=== PATIENT | male | born 1950 | race American Indian/Alaskan Native ===

== ENCOUNTER 2019-03-01 08:29 | Emergency (ER) | payer MEDICARE, BC ==
[2019-03-01 08:29] VITALS: BP 151/52; PULSE 96
[~2019-03-01 08:29] MED LIST changes: -Dextrose 5%-0.45% NaCl 1,000 ML IV SCH; -Midazolam 1 MG/ML 2 ML SDV ONE; -fentaNYL 100 MCG/2 ML SDV ONE
--- NOTE | 2019-03-01 08:30 | EDM.PDOC ---
ED HPI GENERAL MEDICAL PROBLEM - General Chief Complaint: General Stated Complaint: UNKNOWN Time Seen by Provider: 03/01/19 08:29 Source of Information: Reports: Patient, Old Records, Provider (Dr. Mabry), RN , RN Notes Reviewed History Limitations: Reports: No Limitations - History of Present Illness INITIAL COMMENTS - FREE TEXT/NARRATIVE: Pt sent to ER from endoscopy by Dr. Mabry with report of recurring chest pain with exertion. Pt was in this morning for an outpt. endoscopy, but when he was asked the preoperative screening questions the procedure was cancelled because he reported a recent history of chest pain relieved by Nitroglycerin. He had a normal EKG, and no current chest pain, but was urgently ushered to the ER anyway. Pt denies any chest pain here in the ER. Also denies shortness of breath , palpitations, orthopnea, or increasing wt or edema. Pt reports he saw Dr. Cervantes about 2 years ago and had a coronary artery stent. He states he continued to have exertional chest pain after the stent, and routinely for the past 2 years but was reassured by his carbonizer tester that his heart was not the problem. Then about 2 weeks ago, when he began to have increasing chest pain with exertion to the point that he considered it "severe". About 2 weeks ago he decided to try a Nitroglycerin 0.4mg SL and found that it relieved his pain. He has used the NTG a "few times" since then. Pt states he can walk slowly 100 yards, then develops chest pain. If he walks at a moderate pace he can only walk 50 yards. Onset: Gradual Duration: Chronic, Constant, Getting Worse Location: Reports: Chest Quality: Reports: Ache, Pressure, Same as Previous Episode Severity: Severe Improves with: Reports: Rest Worsens with: Reports: Other (Exertion) Associated Symptoms: Reports: No Other Symptoms Treatments [employer]: Reports: Aspirin, Nitroglycerin, Other Medication(s) - Related Data Allergies Allergy/AdvReac Type Severity Reaction Status Date / Time No Known Allergies Allergy Verified 03/01/19 08:29 Home Meds: Home Meds Aspirin [Ecotrin] 325 mg PO DAILY 02/13/15 [History] Finasteride [Proscar] 5 mg PO DAILY 02/13/15 [History] Isosorbide Mononitrate [Imdur] 30 mg PO DAILY 02/13/15 [History] Lisinopril [Prinivil] 10 mg PO DAILY 02/13/15 [History] Metoprolol Succinate [Toprol XL] 50 mg PO DAILY 02/13/15 [History] Nitroglycerin [Nitrostat] 0.4 mg SL ASDIRECTED 02/13/15 [History] Tamsulosin [Flomax] 0.8 mg PO DAILY 02/13/15 [History] atorvaSTATin [Lipitor] 40 mg PO BEDTIME 02/13/15 [History] Ibuprofen 400 mg PO BID 04/24/16 [History] diphenhydrAMINE [Benadryl] 50 mg PO BEDTIME 04/24/16 [History] Calcium Citrate 300 mg PO DAILY 02/26/19 [History] Past Medical History HEENT History: Reports: Impaired Vision Other HEENT History: wears glasses Cardiovascular History: Reports: CAD, High Cholesterol, Hypertension, Stents Respiratory History: Reports: Sleep Apnea Gastrointestinal History: Reports: Colon Polyp, Other (See Below) Other Gastrointestinal History: family hx of colonoscopy Genitourinary History: Reports: BPH, Prostate Disorder, Other (See Below) Other Genitourinary History: BPH with obstruction/lower urinary tract symptoms. Epididymitis, right. hx of kidney stone Musculoskeletal History: Reports: Arthritis, Fracture Other Musculoskeletal History: distal radial fx in 2009. right hip pain Neurological History: Reports: None Psychiatric History: Reports: None Endocrine/Metabolic History: Reports: Obesity/BMI 30+ Hematologic History: Reports: Other (See Below) Other Hematologic History: some delay in clotting due to Ibuprofen Immunologic History: Reports: None Oncologic (Cancer) History: Reports: None Dermatologic History: Reports: Eczema Other Dermatologic History: left hand eczema - Infectious Disease History Infectious Disease History: Reports: Chicken Pox, Measles, Mumps - Past Surgical History HEENT Surgical History: Reports: None Cardiovascular Surgical History: Reports: Coronary Artery Stent, Other (See Below) Other Cardiovascular Surgeries/Procedures: cardiac catheterization in 2002. 1 stent placement 08/13/2002. Transthoracic echocardiogram 03/04/2002 GI Surgical History: Reports: Polypectomy Male Surgical History: Reports: Vasectomy Musculoskeletal Surgical History: Reports: None Social & Family History - Family History Family Medical History: Noncontributory - Caffeine Use Caffeine Use: Reports: Coffee, Soda - Living Situation & Occupation Living situation: Reports: , with Spouse ED ROS GENERAL - Review of Systems Review Of Systems: Comprehensive ROS is negative, except as noted in HPI. ED EXAM, GENERAL - Physical Exam Exam: See Below Exam Limited By: No Limitations General Appearance: Alert, No Apparent Distress, Obese Eye Exam: Bilateral Eye: Normal Inspection Nose: Normal Inspection Throat/Mouth: Normal Inspection, Normal Lips, Normal Voice, No Airway Compromise Head: Atraumatic, Normocephalic Neck: Normal Inspection Respiratory/Chest: No Respiratory Distress, Lungs Clear, Normal Breath Sounds, No Accessory Muscle Use, Chest Non-Tender Cardiovascular: Regular Rate, Rhythm, No Murmur GI/Abdominal: Other (Benign obese abdomen) Back Exam: Normal Inspection Extremities: Normal Range of Motion, Non-Tender, Normal Capillary Refill, Pedal Edema (chronic/stable per pt) Neurological: Alert, Oriented, CN II-XII Intact, Normal Cognition, Normal Gait, No Motor/Sensory Deficits Psychiatric: Normal Affect, Normal Mood Skin Exam: Warm, Dry, Intact, Normal Color, No Rash EKG INTERPRETATION EKG Date: 03/01/19 Time: 08:26 Rhythm: NSR Rate (Beats/Min): 82 [place]: Normal P-Wave: Present QRS: Normal ST-T: Normal QT: Normal Comparison: No Change Course - Vital Signs Last Recorded V/S: Last Vital Signs Temp 98.1 F 03/01/19 08:23 Pulse 96 03/01/19 08:23 Resp 18 03/01/19 08:23 BP 151/52 H 03/01/19 08:23 Pulse Ox 96 03/01/19 08:23 - Orders/Labs/Meds Orders: Active Orders 24 hr Category Date Time Status EKG 12 Lead [EKG Documentation Completion] [RC] URGENT Care 03/01/19 08:27 Active Peripheral IV Care [RC] . DIRECTED Care 03/01/19 08:25 Active PTT,PARTIAL THROMBOPLSTIN TIME [COAG] Stat Lab 03/01/19 09:37 Ordered Heparin Sodium/0.45% NaCl [Heparin 25,000 Units in 1/2 Med 03/01/19 09:45 Active NS 500 ML] 25,000 units in 500 ml IV TITRATE Sodium Chloride 0.9% [Saline Flush] Med 03/01/19 08:24 Active 10 ml FLUSH ASDIRECTED PRN Peripheral IV Insertion Adult [OM.PC] Routine Oth 03/01/19 08:24 Ordered Medication Orders Heparin Sodium/Sodium Chloride (Heparin 25,000 Units In 1/2 Ns 500 Ml) 25,000 units in 500 mls @ 31.831 mls/hr IV TITRATE [place]; Protocol Sodium Chloride (Saline Flush) 10 ml FLUSH ASDIRECTED PRN PRN Reason: Keep Vein Open Last Admin: 03/01/19 08:34 Dose: 10 ml Labs: Laboratory Tests 03/01/19 03/01/19 Range/Units 08:32 08:32 WBC 10.4 H (5.0-10.0) 10^3/uL RBC 4.78 (4.6-6.2) 10^6/uL Hgb 14.0 (14.0-18.0) g/dL Hct 41.0 (40.0-54.0) % MCV 85.8 (80-100) fL MCH 29.3 (27.0-34.0) pg MCHC 34.1 (33.0-35.0) g/dL Plt Count 285 (150-450) 10^3/uL Sodium 139 (135-145) mmol/L Potassium 4.2 (3.6-5.0) mmol/L Chloride 103 (101-111) mmol/L Carbon Dioxide 27.0 (21.0-31.0) mmol/L Anion Gap 13.2 BUN 15 (7-18) mg/dL Creatinine 1.1 (0.6-1.3) mg/dL Est Cr Clr Drug Dosing 66.36 mL/min Estimated GFR (MDRD) > 60 BUN/Creatinine Ratio 13.63 Glucose 103 (74-105) mg/dL Calcium 9.0 (8.4-10.2) mg/dl Total Bilirubin 0.7 (0.2-1.0) mg/dL AST 25 (10-42) IU/L ALT 29 (10-60) IU/L Alkaline Phosphatase 93 (42-121) IU/L Troponin I 0.06 H* (0.00-0.02) ng/ml B-Natriuretic Peptide 9 (0-100) pg/ml Total Protein 7.5 (6.7-8.2) g/dl Albumin 3.8 (3.2-5.5) g/dl Globulin 3.7 Albumin/Globulin Ratio 1.03 Meds: Medications Generic Name Dose Route Start Last Admin Trade Name Freq PRN Reason Stop Dose Admin Heparin Sodium/Sodium Chloride 25,000 units in 500 mls @ 31.831 mls/hr 09:45 Heparin 25,000 Units In 1/2 Ns 500 Ml IV TITRATE [place] Protocol 12 UNITS/KG/HR Sodium Chloride 10 ml 03/01/19 08:24 03/01/19 08:34 Saline Flush FLUSH 10 ml ASDIRECTED PRN Administration Keep Vein Open Discontinued Medications Generic Name Dose Route Start Last Admin Trade Name Freq PRN Reason Stop Dose Admin Heparin Sodium (Porcine) 4,000 units 03/01/19 09:36 Heparin Sodium IVPUSH 03/01/19 09:37 .BOLUS ONE - Radiology Interpretation Free Text/Narrative:: XR Chest 1V: no acute process per radiologist report. - Re-Assessments/Exams Free Text/Narrative Re-Assessment/Exam: 03/01/19 09:38 Pt with recurrent angina, relieved by NTG SL, Hx of CAD s/p stent 2 yrs ago with progressively worsening anginal symptoms over the past 2 weeks, and with elevated Troponin of 0.06 (Ref 0.0 - 0.02). Plan to heparinize and transferred the pt to [facility] after consulting with Dr. Dean. Dr. Ontiveros accepting pt as a direct admit. Departure - Departure Time of Disposition: 09:23 Disposition: DC/Tfer to Acute Hospital 02 Condition: Serious Clinical Impression: Anginal syndrome, Elevated troponin - Discharge Information *PRESCRIPTION DRUG MONITORING PROGRAM REVIEWED*: Not Applicable *COPY OF PRESCRIPTION DRUG MONITORING REPORT IN PATIENT GABRIELE: Not Applicable Forms: ED Department Discharge, Interfacility Transfer [facility] Sepsis Event Note - Evaluation Sepsis Screening Result: No Definite Risk - Focused Exam Vital Signs: Vital Signs Temp Pulse Resp BP Pulse Ox 03/01/19 08:23 98.1 F 96 18 151/52 H 96 Date Exam was Performed: 03/01/19 Time Exam was Performed: 09:38 - My Orders Last 24 Hours: My Active Orders 03/01/19 08:24 Sodium Chloride 0.9% [Saline Flush] 10 ml FLUSH ASDIRECTED PRN Peripheral IV Insertion Adult [OM.PC] Routine 03/01/19 08:25 Peripheral IV Care [RC] . DIRECTED 03/01/19 08:27 EKG 12 Lead [EKG Documentation Completion] [RC] URGENT 03/01/19 09:37 PTT,PARTIAL THROMBOPLSTIN TIME [COAG] Stat 03/01/19 09:45 Heparin Sodium/0.45% NaCl [Heparin 25,000 Units in 1/2 NS 500 ML] 25,000 units in 500 ml IV TITRATE - Assessment/Plan Last 24 Hours: My Active Orders 03/01/19 08:24 Sodium Chloride 0.9% [Saline Flush] 10 ml FLUSH ASDIRECTED PRN Peripheral IV Insertion Adult [OM.PC] Routine 03/01/19 08:25 Peripheral IV Care [RC] . DIRECTED 03/01/19 08:27 EKG 12 Lead [EKG Documentation Completion] [RC] URGENT 03/01/19 09:37 PTT,PARTIAL THROMBOPLSTIN TIME [COAG] Stat 03/01/19 09:45 Heparin Sodium/0.45% NaCl [Heparin 25,000 Units in 1/2 NS 500 ML] 25,000 units in 500 ml IV TITRATE
[2019-03-01 09:10] LABS: ANION GAP 13.2; CHLORIDE,CL 103 mmol/L (101-111); SODIUM,NA 139 mmol/L (135-145)
[2019-03-01] MEDS ORDERED: Heparin Sodium 5,000 Units/ML Vial IVPUSH ONE (09:36)
[2019-03-01] MEDS ORDERED: Heparin Sodium/0.45% NaCl 25,000 UNITS/500 ML BAG IV SCH (09:45)
== END 2019-03-01 10:11 ==
LOC: DL.ED 08:29
DX: I20.9 Angina pectoris, unspecified (principal); I10 Essential (primary) hypertension; E66.9 Obesity, unspecified; Z68.30 Body mass index [BMI] 30.0-30.9, adult
CPT/HCPCS: 36415; 71045; 80053; 83880; 84484; 85027; 85730; 93005; 96365; 99285; J1644

== ENCOUNTER → 2019-03-01 | Day surgery (SDC) | payer MEDICARE, BC ==
[~2019-03-01] MED LIST: Dextrose 5%-0.45% NaCl 1,000 ML IV SCH; Midazolam 1 MG/ML 2 ML SDV ONE; Sodium Chloride 0.9% 10 ML Syringe FLUSH PRN; fentaNYL 100 MCG/2 ML SDV ONE
[2019-03-01 07:21] VITALS: BP 149/69; PULSE 83
--- NOTE | 2019-03-01 10:37 | PN ---
DATE: 03/01/2019 SUBJECTIVE: The patient with known coronary artery disease and history of previous coronary stent placement, had chest pain couple of weeks ago and took nitroglycerin with relief. Had recurrence of similar kind of chest pain 3 days ago, again relieved with nitroglycerin. Has had some exertional chest discomfort. Denies any kind of chest pain today. Denies any specific difficulties. OBJECTIVE: Vital Signs: Stable vital signs. General: Alert and oriented. Appears not to be in distress. Not short of breath at rest. Lungs: No adventitious sounds heard. Cardiovascular: S1 and S2, regular. No CHF. Abdomen: Obese, soft. No areas of tenderness elicited. PLAN: Chart reviewed. Medication list scanned. EKG done today does not show any acute changes. Troponin elevated. Discussed with the patient in detail as to attention to coronary artery disease and colonoscopy electively later, so scheduled colonoscopy canceled. Discussed with Dr. Ayala at emergency room here, and the patient is transferred there for further management by Cardiology Services. IMPRESSION: Exogenous obesity, coronary artery disease, status post coronary stent placement. [facility] /[id number]
== END ==
LOC: DL.ENDO 06:09
PROVIDERS: ATTEND Internal Medicine Gastroenterology
DX: Z12.11 Encounter for screening for malignant neoplasm of colon (principal); R07.9 Chest pain, unspecified; I25.10 Atherosclerotic heart disease of native coronary artery without angina pectoris; Z95.5 Presence of coronary angioplasty implant and graft; Z53.8 Procedure and treatment not carried out for other reasons
CPT/HCPCS: 36415; 84484; 93005